=== PATIENT | male | born 1940 | race Caucasian/White ===

== ENCOUNTER 2016-07-20 09:56 | Observation (INO) | payer MEDICARE ==
--- NOTE | 2016-07-20 10:06 | ERNOTE ---
Medical Problem HPI - Narrative Date of Service: 07/20/16 - General Time Seen by Provider: 07/20/16 10:03 Source: patient - Immun/Allergies/Home Medications Allergies/Adverse Reactions: Allergies No Known Allergies Allergy (Unverified 07/20/16 10:12) Home Medications: HOME MEDICATIONS Aspirin 81 mg PO DAILY 07/20/16 [Last Taken Unknown] Celecoxib [Celebrex] 200 mg PO DAILY 07/20/16 [Last Taken Unknown] Cyclobenzaprine HCl 5 mg PO TID PRN 07/20/16 [Last Taken Unknown] HYDROcodone/ACETAMINOPHEN [[place] 5-325 Tablet] 1 - 2 tab PO Q6H PRN 07/20/16 [ Last Taken Unknown] Hydrochlorothiazide 50 mg PO DAILY 07/20/16 [Last Taken Unknown] - History of Present History Narrative: Here for feeling "fuzzy" since 0600 today. Pt states that when he woke up he was slurring his speech and still is. He states that he feels as if his handwriting with the right hand is "not the same". also pt states he has drooping of the right side of face. His told him this morning that he was acting "goofy". pt denies having any headache or blurry vision. He was able to ambulate to bed without gait disturbances. Has HTN. On meds Review of Systems - Review of Systems Constitutional: Present: no symptoms reported EYE: Present: no symptoms reported ENT: Present: no symptoms reported Respiratory: Present: no symptoms reported Cardiology: Present: no symptoms reported Neurological: Present: other - symptoms states that he feels slightly fuzzy and that his speech is not normal, his speech is slightly slurred and patient has a right-sided facial droop which is mild area patient's strength upon grasp is equal bilaterally his gait is undisturbed, he does not have any drift on examination upon examination of the arms or legs. - Patient's Past Medical History Patient History - Medical: Other - he should have a history of hypertension Physical Exam - Physical Exam General Appearance: Present: wd/wn, alert, no apparent distress, other - patient 's GCS is 15 however he does have a mild right-sided facial droop as noted by the relaxation of the right nasolabial fold. he does have slurred speech which improved during his visit here in our ER. Eye Exam: Normal inspection: bilateral, PERRL: bilateral Ears, Nose, Throat: Present: normal ENT inspection Neck: Present: normal inspection Respiratory: Present: no respiratory distress, normal breath sounds, no accessory muscle use, chest nontender, lungs clear Cardiovascular/Chest: Present: regular rate, rhythm, no murmur, normal peripheral pulses Neurological Exam: Present: alert, oriented, normal mood/affect, other - does have a mild right-sided facial droop, he does not have any drift upon examination of his extremities, grasp is equal bilaterally his gait is steady and undisturbed. ED Progress - Results and Orders Patient's Lab Results:: I have reviewed the patient's lab results. - Vital Signs Patient's Vital Signs:: I have reviewed the patient's vital signs. - EKG EKG: NSR - CT/Ultrasound CT/Ultrasound Narrative: He was done by her radiologist and read as normal by radiologist x-ray is normal Plan - Plan Plan: Patient clearly has right-sided facial droop which is mild and slurring of his speech. Strength is good in the right upper extremity he claims that his handwriting is not what it used to be. Eyes having any headaches at this time. He has no ocular manifestations. A stat CT scan without contrast is normal and negative for a head bleed. I believe this patient may have had an embolic phenomenon. Dr. Munson, the patient's primary care physician was consulted at this time for admission. Departure - Departure Clinical Impression: Dysphasia Disposition: [facility] [place] Condition: Fair Referrals: James Munson MD [Primary Care Provider] -
[2016-07-20 10:21] LABS: Hematocrit 46.5 % (42.0-52.0); Hemoglobin 16.3 gm/dL (13.5-18.0); Mean Cell Volume 93.4 fl (78-100); Mean Corpuscular Hemoglobin 32.7 pg (27-31); Mean Corpuscular Hgb Conc 35.1 g/dl (32-36); Mean Platelet Volume 9.5 fl (6.0-9.5); Neutrophil # 3.2 K/mm3 (1.3-6.0); Neutrophil % 61.1 % (42-75.0); Platelet Count 226 K/mm3 (150-450); Red Blood Count 4.98 M/mm3 (4.7-6.0); Red Cell Distribution Width 11.9 % (11.5-14.0); White Blood Count 5.2 K/mm3 (4.0-10.5)
[2016-07-20 10:30] LABS: INR 1.08 INR (0.90-1.10); Partial Thrombolplastin Time 29.7 Seconds (24-32); Prothrombin Time (Patient) 11.2 Seconds (9.4-11.4)
[2016-07-20 10:31] LABS: Albumin * 4.1 gm/dl (3.4-5.0); Anion Gap 10.4 mmol/L (6.8-13.8); BUN/Creatinine Ratio 13.4 (9.0-21.6); Bilirubin, Total 0.6 mg/dL (0.0-1.1); Ca. Corrected For Albumin 8.6 mg/dL (8.4-10.2); Carbon Dioxide 29.9 mmol/L (24-32.6); Potassium 3.3 mmol/L (3.4-4.6); Total Protein 8.2 gm/dL (6.2-8.2)
--- NOTE | 2016-07-20 13:31 | HP ---
Chief Complaint - Chief Complaint Date of Service: 07/20/16 Time of Service: 17:00 Chief Complaint: Dysarthria, right sided weakness, confusion History of Present Illness: Pt. had onset of dysarthria, confusion and right sided weakness around at least 6am, with unknown duration at that time, but didn't present to ER until after 900, outside the time range for tPA, but he also had improvement in sx by that time. In the ER his workup showed no bleed on CT, normal labs - cmp, CBC and EKG, except for low K. Added on UA was also negative. 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 He denies vision changes, F/C, LINDA, CP, SOB, palpitations, N/V or choking sx. He states his speech just seemed cumbersome, his tongue thick, some confusion and problems writing. He states at the time I saw him, that all has improved except his tongue still feels thick. His PMH is significant for HTN and has been compliant with taking his HCTZ, but has not taken a baby ASA as instructed on a regular basis. His CHL has been good in the past, but he has not been seen or had labs done in over 2 years. - Patient's Past Medical History Patient History - Medical: Other - he should have a history of hypertension Patient History - Cardiac/Respiratory: No pertinent hx, Hypertension Patient History - Cancer: No Hx of Cancer Patient History - Surgical Procedures: No surgical history Patient History - Other: None - Family History Father Family History - Cardiac/Respiratory: CHF - Social History Living Situations: spouse Psych History: No pertinent hx Smoking Status: Never smoker - Immunizations Immunizations Up to Date: Yes Hx Pneumococcal Vaccination: Yes History of Influenza Vaccine: Yes Review Of Systems (GEN) - Review of Systems Generalized/Overall Review: Present: Weakness, Fatigue. Absent: Chills, Fever EENTM: Absent: Blurred Vision, Double Vision, Throat Pain, Throat Swelling Respiratory: Absent: Shortness of Breath Cardiac: Absent: Chest Pain, Palpitations, Syncope Abdominal: Present: No Symptoms Reported Genitourinary: Present: No Symptoms Reported Musculoskeletal: Present: No Symptoms Reported Neurological: Present: Weakness. Absent: Parasthesia Skin: Present: No Symptoms Reported Endocrine: Present: No Symptoms Reported Allergies/Adverse Reactions: Allergies Allergy/AdvReac Type Severity Reaction Status Date / Time No Known Allergies Allergy Unverified 07/20/16 10:12 Home Medications: HOME MEDICATIONS Aspirin 81 mg PO DAILY 07/20/16 [Last Taken Unknown] Celecoxib [Celebrex] 200 mg PO DAILY 07/20/16 [Last Taken Unknown] Cyclobenzaprine HCl 5 mg PO TID PRN 07/20/16 [Last Taken Unknown] HYDROcodone/ACETAMINOPHEN [[place] 5-325 Tablet] 1 - 2 tab PO Q6H PRN 07/20/16 [ Last Taken Unknown] Hydrochlorothiazide 50 mg PO DAILY 07/20/16 [Last Taken Unknown] Exam - Exam Vital Signs: Vital Signs - Last Taken Temp Pulse 56 L 07/20/16 11:42 Resp 15 07/20/16 11:42 BP 167/95 07/20/16 11:42 Pulse Ox 95 07/20/16 11:42 Constitutional: Present: Alert, Oriented x3, Cooperative, No distress ENT Exam: Present: hearing grossly normal Eye Exam: bilateral eye: normal inspection, PERRL, EOMI Neck: Present: supple Back Exam: Present: normal inspection Respiratory: Present: lungs clear, normal breath sounds, no respiratory distress , no accessory muscle use Cardiovascular/Chest: Present: regular rate, rhythm, systolic murmur - 2/6 LUSB Abdomen: Present: Normal bowel sounds, soft, nontender, nondistended, no hepatospenomegaly /Rectal: Present: Exam deferred Extremity: Present: no calf tenderness Skin Exam: Present: normal color Neurologic: Present: holistic specialist II-XII nml as tested, normal cerebellar test, no motor/ sensory deficits, alert, facial droop - right side, most noteable when trying to smile - diminished turn up of right side. Absent: abnormal cerebellar tests , aphasia, motor weakness Appearance: Present: appropriate appearance, appropriate insight, neat Eye contact: Present: cooperative, good eye contact, decreased rate of speech, other - seems very euphoric. Thoughts: Present: normal thought pattern, no apparent hallucination Diagnostic Studies: Laboratory Results WBC 5.2 K/mm3 (4.0-10.5) 07/20/16 10:11 RBC 4.98 M/mm3 (4.7-6.0) 07/20/16 10:11 Hgb 16.3 gm/dL (13.5-18.0) 07/20/16 10:11 Hct 46.5 % (42.0-52.0) 07/20/16 10:11 MCV 93.4 fl (78-100) 07/20/16 10:11 MCH 32.7 pg (27-31) H 07/20/16 10:11 MCHC 35.1 g/dl (32-36) 07/20/16 10:11 RDW 11.9 % (11.5-14.0) 07/20/16 10:11 Plt Count 226 K/mm3 (150-450) 07/20/16 10:11 MPV 9.5 fl (6.0-9.5) 07/20/16 10:11 Immature Gran % (Auto) 0.20 % (0.001-0.429) 07/20/16 10:11 Immature Gran # (Auto) 0.01 K/mm3 (0.000-0.0310) 07/20/16 10:11 Neutrophils % 61.1 % (42-75.0) 07/20/16 10:11 Lymphocytes % 26.3 % (20-51) 07/20/16 10:11 Monocytes % 10.3 % (0.0-9) H 07/20/16 10:11 Eosinophils % 1.3 % (0.0-3.0) 07/20/16 10:11 Basophils % 0.8 % (0.0-1.0) 07/20/16 10:11 Nucleated RBC % 0.0 k/mm3 (0-1) 07/20/16 10:11 Neutrophils # 3.2 K/mm3 (1.3-6.0) 07/20/16 10:11 Lymphocytes # 1.4 k/mm3 (1.5-3.5) L 07/20/16 10:11 Monocytes # 0.5 k/mm3 (0.0-1.0) 07/20/16 10:11 Eosinophils # 0.1 k/mm3 (0.0-0.7) 07/20/16 10:11 Absolute Basophils 0.0 k/mm3 (0.0-0.1) 07/20/16 10:11 ESR 11 mm/hr (0-10) H 07/20/16 10:11 PT 11.2 Seconds (9.4-11.4) 07/20/16 10:11 INR (Anticoag Therapy) 1.08 INR (0.90-1.10) 07/20/16 10:11 PTT ([place]) 29.7 Seconds (24-32) 07/20/16 10:11 Sodium 138 mmol/L (132-142) 07/20/16 10:11 Plasma Sodium 138 mmol/L (130-142) 07/20/16 10:11 Potassium 3.3 mmol/L (3.4-4.6) L 07/20/16 10:11 Chloride 101 mmol/L (97-106) 07/20/16 10:11 Carbon Dioxide 29.9 mmol/L (24-32.6) 07/20/16 10:11 Anion Gap 10.4 mmol/L (6.8-13.8) 07/20/16 10:11 BUN 15 mg/dL (6-23) 07/20/16 10:11 Creatinine 1.12 mg/dL (0.4-1.4) 07/20/16 10:11 Est GFR (Non-Af Amer) 68 mL/min (60-130) 07/20/16 10:11 BUN/Creatinine Ratio 13.4 (9.0-21.6) 07/20/16 10:11 Random Glucose 102 mg/dL (70-110) 07/20/16 10:11 Calcium 9.0 mg/dL (7.9-10.9) 07/20/16 10:11 Calcium Adj for Albumin 8.6 mg/dL (8.4-10.2) 07/20/16 10:11 Total Bilirubin 0.6 mg/dL (0.0-1.1) 07/20/16 10:11 AST 23 U/L (0-48) 07/20/16 10:11 ALT 16 U/L (19-67) L 07/20/16 10:11 Alkaline Phosphatase 79 U/L (50-170) 07/20/16 10:11 Total Protein 8.2 gm/dL (6.2-8.2) 07/20/16 10:11 Albumin 4.1 gm/dl (3.4-5.0) 07/20/16 10:11 Assessment/Plan - Assessment/Plan (1) Dysarthria Assessment: TIA - embolic most likely. given the 130 HR on admission to ER, would be concerned for possible paroxysmal Afib, even though VS state regular rhythm. This could explain sx. Will do telemetry to monitor this. Will allow BP's to run high for now, but eventually will look at putting him on at least a low dose IRVIN. Will do MRI outpt, once he leaves the hospital. Will check lipids and tx if LDL > 100 (will have to do outpt as it is not allowed in obs status). Will also add plavix to drug regimen for now. Will hold celebrex and vicodin as these can potentially cause issues with blood pressure and confusion. Will check UA to be sure no hidden bladder infection. Problem: Acute (2) Right-sided muscle weakness Assessment: appears to be resolving, though she still can't write properly. pt. is right handed. Problem: Acute (3) Confusion Assessment: appears to have resolved. Problem: Acute (4) Discharge planning issues Assessment: Anticipate d/c tomorrow assuming no more events overnight and HR remains stable. Problem: Acute (5) Hypokalemia due to loss of potassium Assessment: will do dose KCL 20 and recheck level in am. Problem: Acute (6) TIA due to embolism Assessment: will finish w/u outpt. Pt. and reluctant to take plavix, would like to be more compliant with daily ASA. Problem: Acute
[2016-07-20] MEDS: CLOPIDOGREL BISULFATE 75 MG TABLET PO SCH (13:52)
[2016-07-20] MEDS: POTASSIUM CHLORIDE 20 MEQ TABLET.SA PO SCH (13:55)
[2016-07-20 14:27] LABS: Urine Bilirubin Negative (NEGATIVE); Urine Blood Negative /ul (NEGATIVE); Urine Ketone Negative (NEGATIVE); Urine Nitrite Negative (NEGATIVE); Urine Protein Negative (NEGATIVE); Urine Urobilinogen Normal (NORMAL); Urine pH 6.5 pH (5.0-7.0)
[2016-07-20 14:28] LABS: Urine Appearance Clear; Urine Bacteria None Seen; Urine Color Yellow; Urine RBC None Seen /hpf (0-5); Urine WBC None Seen /hpf (0-5)
--- NOTE | 2016-07-21 06:44 | DS ---
(1) Dysarthria Problem: Acute (2) Right-sided muscle weakness Problem: Acute (3) Confusion Problem: Acute (4) Discharge planning issues Problem: Acute (5) Hypokalemia due to loss of potassium Problem: Acute (6) TIA due to embolism Problem: Acute Description of Stay: Pt. admitted to hospital due to neurologic changes, hypokalemia and tachycardia - concerning for possible paroxysmal Afib. Pt. did improve in his speech, facial droop, right hand strength and therefore will discharge home with f/u this Wednesday with me and further testing outpt. Pt. was instructed to take ECASA 81mg daily. Will check chl and look at setting up MRI, possibly ECHO and carotid dopplers outpt. Will monitor BP's, consider adding IRVIN to HCTZ, which should help K as well as BP. Procedures Performed: none Discharge Disposition: Home self care Disposition: Home self-care Condition: Good Discharge Activity: Activity as tolerated Discharge Diet: General/regular food Referrals: James Munson MD [Primary Care Provider] - 07/24/16 Complete Home Medications List: Complete Home Medication List: Aspirin 81 mg PO DAILY 07/20/16 Celecoxib [Celebrex] 200 mg PO DAILY 07/20/16 Cyclobenzaprine HCl 5 mg PO TID PRN 07/20/16 HYDROcodone/ACETAMINOPHEN [[place] 5-325 Tablet] 1 - 2 tab PO Q6H PRN 07/20/16 Hydrochlorothiazide 50 mg PO DAILY 07/20/16
[2016-07-21 07:11] VITALS: BP 137/85
[2016-07-21] MEDS: POTASSIUM CHLORIDE 20 MEQ TABLET.SA PO SCH (08:46)
[2016-07-21] MEDS: CLOPIDOGREL BISULFATE 75 MG TABLET PO SCH (08:47)
[2016-07-21] MEDS ORDERED: HYDROCHLOROTHIAZIDE 25 MG TABLET PO SCH (09:00)
[2016-07-21] MEDS ORDERED: ASPIRIN 81 MG TAB.CHEW PO SCH (09:00)
== END 2016-07-21 09:00 | disposition home or self-care (01) ==
LOC: ER 09:56 → UNDOADMOB 12:06 → MS 12:06
PROVIDERS: ADMIT Family Medicine; ATTEND Family Medicine
DX: G45.8 Other transient cerebral ischemic attacks and related syndromes (principal); E87.6 Hypokalemia; R41.0 Disorientation, unspecified; R47.1 Dysarthria and anarthria; I48.0 Paroxysmal atrial fibrillation
CPT/HCPCS: 36415; 70450; 71010; 80053; 81001; 84132; 85025; 85610; 85652; 85730; 93005; 99284; G0378

== ENCOUNTER 2017-03-14 14:05 | Emergency (ER) | payer MEDICARE ==
[2017-03-14] MEDS ORDERED: DIPHTH,PERTUSS(ACELL),TET VAC 0.5 ML VIAL IM ONE ×2 (14:32→14:40)
--- NOTE | 2017-03-14 14:42 | ERNOTE ---
Upper Extremity HPI - General Extremities Pain Location: 5th finger: left Time Seen by Provider: 03/14/17 14:32 Source: patient Exam Limitations: no limitations - Immun/Allergies/Home Medications Immunizations: IMMUNIZATION HX Immunizations Up to Date Yes History of Influenza Vaccine Yes Hx Pneumococcal Vaccination Yes Allergies/Adverse Reactions: Allergies Allergy/AdvReac Type Severity Reaction Status Date / Time No Known Allergies Allergy Verified 03/14/17 14:29 Home Medications: HOME MEDICATIONS Aspirin 81 mg PO DAILY 07/20/16 [Last Taken Unknown] Celecoxib [Celebrex] 200 mg PO DAILY 07/20/16 [Last Taken Unknown] Hydrochlorothiazide 50 mg PO DAILY 07/20/16 [Last Taken Unknown] Amox Tr/Potassium Clavulanate [Augmentin 875-125 Tablet] 875 mg PO Q12H #10 tab 03/14/17 [Last Taken Unknown] - History of Present Illness Narrative: Patient was working with a hydraulic when he got his left fifth finger caught and injured the finger tip. He denies any other injury, no significant pain. Date (Duration): 03/14/17 Occurred: just prior to arrival Review of Systems - Review of Systems Constitutional: Absent: recent illness ENT: Absent: nose congestion, sore throat Respiratory: Absent: shortness of breath Cardiology: Absent: chest pain Gastrointestinal/Abdominal: Present: no symptoms reported Genitourinary: Present: no symptoms reported Musculoskeletal: Present: See HPI Skin: Present: no symptoms reported Neurological: Absent: weakness, numbness - Patient's Past Medical History Patient History - Medical: Other Patient History - Cardiac/Respiratory: Hypertension Patient History - Cancer: No Hx of Cancer Patient History - Surgical Procedures: No surgical history Patient History - Other: None - Family History Father Family History - Cardiac/Respiratory: CHF - Social History Psych History: No pertinent hx - Immunizations Immunizations Up to Date: Yes Hx Pneumococcal Vaccination: Yes History of Influenza Vaccine: Yes Physical Exam - Physical Exam General Appearance: Present: wd/wn, alert, no apparent distress Head Exam: Present: normal inspection Respiratory: Present: no respiratory distress, normal breath sounds, no accessory muscle use, lungs clear Cardiovascular/Chest: Present: regular rate, rhythm, no murmur Extremity Exam: Present: normal except - - crush injury to distal phalanx of right fifth finger, laceration on lateral side and proximal to nail with dislocation of nail with attached tissue, sensation deficit to distal finger Neurological Exam: Present: alert, oriented, normal mood/affect Skin Exam: Present: normal color, warm/dry ED Progress - Vital Signs Patient's Vital Signs:: I have reviewed the patient's vital signs. Vital Signs: Vital Signs 03/14/17 14:26 Temperature 36.5 C Pulse Rate 58 L Respiratory 14 Rate Blood Pressure 122/60 O2 Sat by Pulse 99 Oximetry - X-Ray X-Ray #1 X-Ray: finger - comminuted distal phalanx fx, displaced Interpretation: Interp. by me - Progress/Reassessment Chief Complaint: Laceration Progress:: Pain free at discharge Progress Note-Subjective: 03/14/17 15:[address] Krause, reviewed images, clean, wrap with xeroform gauze give ancef, rx for augmentin follow up in clinic tomorrow at 08:30 NPO after midnight for revision in OR 03/14/17 15:39 discussed plan with patient and family 03/14/17 15:52 finger tip aligned and dressed Departure Clinical Impression: Crushing injury of finger of left hand - Departure Disposition: Home self-care Condition: Good Instructions: Crush Injury, Fingers or Toes, [id number] Additional Instructions: keep the dressing dry and the hand elevated go to Dr Krause's office Wednesday (tomorrow) at 08:30 do NOT have anything to eat or drink after midnight tonight (you may take the antibiotic pill in the morning with a small sip of water) Referrals: Jeronimo Krause MD [Staff Physician] - Prescriptions: Amox Tr/Potassium Clavulanate [Augmentin 875-125 Tablet] 875 mg PO Q12H #10 tab
[2017-03-14] MEDS ORDERED: ceFAZolin SODIUM 1 GM VIAL IM ONE (15:31)
[2017-03-14] MEDS ORDERED: ceFAZolin SODIUM 1 GM VIAL ONE (15:48)
[2017-03-14] MEDS ORDERED: WATER FOR INJECTION,STERILE 20 ML VIAL ONE (15:49)
[2017-03-14] MEDS ORDERED: AMOX TR/POTASSIUM CLAVULANATE 875 MG TABLET PO ONE (15:49)
[2017-03-14] MEDS ORDERED: AMOX TR/POTASSIUM CLAVULANATE 875 MG TABLET ONE (15:52)
[2017-03-14 16:05] VITALS: BP 140/80
== END 2017-03-14 16:04 | disposition home or self-care (01) ==
LOC: ER 14:05
DX: S67.195A Crushing injury of left ring finger, initial encounter (principal); S61.315A Laceration without foreign body of left ring finger with damage to nail, initial encounter; W23.0XXA Caught, crushed, jammed, or pinched between moving objects, initial encounter; Z23 Encounter for immunization; I10 Essential (primary) hypertension

== ENCOUNTER 2017-03-15 14:55 | Day surgery (SDC) | payer MEDICARE ==
[2017-03-15] MEDS ORDERED: RINGER'S SOLUTION,LACTATED 1,000 ML IV ONE (15:45)
[2017-03-15] MEDS ORDERED: ceFAZolin SODIUM 1 GM VIAL IV ONE (15:55)
[2017-03-15] MEDS ORDERED: LIDOCAINE HCL 50 ML VIAL IJ ONE ×2 (16:10)
[2017-03-15] MEDS ORDERED: BUPIVACAINE HCL 50 ML VIAL IJ ONE ×2 (16:10)
--- NOTE | 2017-03-15 17:25 | OR ---
Operative Report - Dictated Report Narrative: Date: 03/15/2017 Physician: Jeronimo Krause M.D. 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 He was initially seen in the emergency department where his wound was initially managed with thorough irrigation and then dressed with a biologic dressing. He was given a dose of intramuscular Ancef in the ED and then placed on oral Augmentin. He presented to my clinic the next morning with instructions to be nothing by mouth after midnight. Based on the extent of his injury, I counseled him on treatment options and recommended a completion amputation of the left small fingertip through the DIP joint. The risks of surgery were discussed in detail including, but not limited to, bleeding, infection, neuroma, persistent pain, wound complications, stiffness, need for additional procedures, and risks with anesthesia. Consent was obtained in the clinic. Procedure: After marking the correct extremity in the preoperative holding area, a timeout was performed in the operating room. IV antibiotics consisting of 2 g of Ancef were administered prior to the procedure. A well-padded tourniquet was applied to the operative upper arm. The hand and small finger with an pre-scrubbed with chlorhexidine to remove any gross contamination. The operative extremity was then prepped and draped in the usual sterile fashion. The arm was exsanguinated and the tourniquet was inflated to 250 mmHg. A 1:1 mixture of 0.5 % Marcaine without epinephrine and 1% lidocaine without epinephrine was used to perform a digital block of the left small finger. Using Loupe magnification, thorough inspection of the wound was undertaken. This demonstrated significant dorsal soft tissue injury extending through the base of the nailbed and germinal matrix and into the distal phalanx. The proximal portion of the distal phalanx involving the DIP joint demonstrated significant comminution. The volar soft tissue was intact and viable. At this point it was elected to proceed with completion amputation through the DIP joint. A sharp knife was used to debride the wound of all nonviable and contaminated-looking tissue. The distal portion of the fractured distal phalanx was removed along with the nailbed and nail plate in its entirety. The digital nerves were then identified and dissected out as far proximally as possible. These were injected with 0.5% Marcaine without epinephrine and then sharply divided with a scalpel. The proximal bony fragments of the distal phalanx were removed after releasing the flexor digitorum profundus, the extensor tendon, and the collateral ligaments. Next, attention was turned to ensure that we had excised all of the germinal matrix. The volar and dorsal skin flaps were then trimmed to provide a tension-free closure. At this point the wound was copiously irrigated with normal saline. Tourniquet was deflated and hemostasis was obtained with pressure as well as bipolar cautery. Both the volar and dorsal soft tissue flaps demonstrated good return of capillary refill. Once bleeding had resolved and there was no excessive bleeding, the wound was closed with interrupted 4-0 nylon. Xeroform, 4 x 4's, 2 inch Kevin, and Coban was applied. The patient was awoken and transferred to the post-anesthesia care unit in stable condition. All sponge, needle, blade, and instrument counts were correct prior to closing the wounds.
[2017-03-15 18:53] VITALS: BP 125/77
== END 2017-03-15 14:56 | disposition home or self-care (01) ==
LOC: AMB 14:55
PROVIDERS: ATTEND Orthopaedic Surgery
PROC: 0X6W0Z3 Detachment at Left Little Finger, Low, Open Approach (ICD-10-PCS; principal; 2017-03-15 15:00)
DX: S67.197A Crushing injury of left little finger, initial encounter (principal); S68.627A Partial traumatic transphalangeal amputation of left little finger, initial encounter; I10 Essential (primary) hypertension; E78.5 Hyperlipidemia, unspecified; K21.9 Gastro-esophageal reflux disease without esophagitis; Z68.28 Body mass index [BMI] 28.0-28.9, adult; W31.89XA Contact with other specified machinery, initial encounter